=== PATIENT | female | born 1980 | race Two or more races ===

== ENCOUNTER 2016-07-23 09:53 | Emergency (ER) | payer MEDICAID ==
[~2016-07-23] VITALS: Ht 144.8 cm; Wt 71.7 kg
[2016-07-23 10:59] LABS: Basophils # (auto) 0.1 uL; Basophils % (auto) 0.7 % (0.0-2.0); Eosinophils # (auto) 0.1 uL; Eosinophils % (auto) 1.6 % (0.0-7.0); Hematocrit 41.5 % (36.0-46.0); Lymphocytes # (auto) 2.7 uL; Lymphocytes % (auto) 33.4 % (10.0-50.0); Mean Corpuscular Hgb Conc. 33.8 g/dL (32.0-36.0); Mean Corpuscular Volume 85.8 fL (80.0-100.0); Mean Platelet Volume 10.4 fL (7.4-10.4); Monocytes # (auto) 0.4 uL; Monocytes % (auto) 4.3 % (0.0-12.0); Neutrophils # (auto) 4.9 uL; Platelet Count (auto) 364 10^3/uL (140-450); Red Cell Distribution Width 13.2 % (11.6-16.0); White Blood Cell 8.2 10^3/uL (4.4-10.8)
[2016-07-23 11:22] LABS: Albumin 3.7 g/dL (3.4-5.0); BUN/Creatinine Ratio 9.9; Bilirubin, Total 0.3 mg/dL (0.2-1.0); Calcium 8.9 mg/dL (8.5-10.1); Potassium 4.2 mmol/L (3.5-5.1); Total Protein 8.6 g/dL (6.4-8.2)
[2016-07-23] MEDS ORDERED: PANTOPRAZOLE SODIUM 40 MG/10 ML VIAL IV STA (12:05)
[2016-07-23] MEDS ORDERED: SODIUM CHLORIDE 0.9% 500 ML IVB ONE (12:05)
[2016-07-23 12:06] LABS: Urine Bilirubin Negative (Negative); Urine Color Yellow (Yellow); Urine Glucose Normal (Normal); Urine Ketone Negative (Negative); Urine Nitrite Negative (Negative); Urine RBC 24 /hpf (0 - 4); Urine Squamous Epithelial Cell FEW /hpf (<5); Urine Urobilinogen Normal (Negative); Urine pH 6.5 (5.0-8.0)
[2016-07-23 12:08] LABS: Urine Blood 3+ /uL (Negative)
[2016-07-23] MEDS ORDERED: ONDANSETRON HCL 4 MG/2 ML VIAL IV ONE (12:15)
[2016-07-23] MEDS ORDERED: MORPHINE SULFATE 4 MG/ML SYRG IV ONE (12:15)
[2016-07-23 13:47] VITALS: BP 125/82
[2016-07-23 13:59] LABS: Amylase 58 U/L (25-115)
== END 2016-07-23 14:01 | disposition home or self-care (01) ==
LOC: ER 09:53
DX: K29.70 Gastritis, unspecified, without bleeding (principal); R19.7 Diarrhea, unspecified; Z88.0 Allergy status to penicillin
CPT/HCPCS: 36415; 76705; 80053; 81001; 81025; 82150; 83690; 85025; 94761; 96361; 96374; 96375; 99285; C9113; J2270; J2405; J7030

== ENCOUNTER 2016-08-17 13:18 | Emergency (ER) | payer MEDICAID ==
[~2016-08-17] VITALS: Ht 139.7 cm; Wt 69.4 kg
[2016-08-17 14:03] VITALS: BP 111/70
== END 2016-08-17 16:22 | disposition home or self-care (01) ==
LOC: ER 13:18
DX: T78.40XA Allergy, unspecified, initial encounter (principal); Z88.0 Allergy status to penicillin

== ENCOUNTER 2018-04-25 18:12 | Emergency (ER) | payer MEDICAID ==
[~2018-04-25] VITALS: Ht 144.8 cm; Wt 72.6 kg
[2018-04-25 18:53] VITALS: BP 119/78
[2018-04-26] MEDS ORDERED: ACETAMINOPHEN 500 MG TAB PO ONE
[2018-04-26] MEDS ORDERED: IBUPROFEN 800 MG TAB PO ONE
== END 2018-04-26 00:09 | disposition home or self-care (01) ==
LOC: ER 18:12
DX: H61.21 Impacted cerumen, right ear (principal); Z88.0 Allergy status to penicillin